=== PATIENT | male | born 1950 | race Caucasian/White ===

== ENCOUNTER 2018-03-25 06:40 | Day surgery (SDC) | payer OTHER, MEDICARE, MEDICAID ==
[~2018-03-25] VITALS: Ht 165.1 cm; Wt 74.0 kg
[~2018-03-25 06:40] MED LIST: ACET-784 PO; ATOR10TA84 PO; DOCU250C91 PO; DUTA.5 PO; FERR-89 PO; GUAIF10 PO; LEVO75 PO; LOPE2 PO; LORA10TA7 PO; MELO-107 PO; MULT1TAB70 PO; PHEN118S38 PO
[2018-03-25] MEDS ORDERED: RINGERS SOLUTION,LACTATED 1,000 ML IV ONE ×3 (06:53→07:00)
[2018-03-25] MEDS ORDERED: AMPICILLIN SODIUM 1 GM/VIAL ONE ×2 (06:59→07:36)
[2018-03-25] MEDS ORDERED: SODIUM CHLORIDE 0.9% 100 ML ONE (07:00)
[2018-03-25] MEDS ORDERED: MEPERIDINE-PF 25 MG/ML VIAL IVP PRN (09:45)
[2018-03-25] MEDS ORDERED: FentaNYL CITRATE-PF 100 MCG/2 ML VIAL IVP PRN (09:45)
[2018-03-25] MEDS ORDERED: HYDROmorphone 2 MG/ML SYRINGE IVP PRN (09:45)
[2018-03-25] MEDS ORDERED: SUCCINYLCHOLINE CHLORIDE 20 MG/ML 10 ML VIAL IVP ONE (12:00)
[2018-03-25] MEDS ORDERED: ONDANSETRON HCL 4 MG/2 ML VIAL IVP ONE (12:00)
[2018-03-25] MEDS ORDERED: FentaNYL CITRATE-PF 100 MCG/2 ML VIAL IVP ONE (12:00)
[2018-03-25] MEDS ORDERED: DEXAMETHASONE SOD PHOS 4 MG/ML VIAL IVP ONE (12:00)
[2018-03-25] MEDS ORDERED: PROPOFOL 1% 20 ML VIAL IVP ONE (12:00)
[2018-03-25] MEDS ORDERED: KETAMINE HCL 50 MG/ML 10 ML VIAL IVP ONE (12:00)
[2018-03-25] MEDS ORDERED: LIDOCAINE/PF 2% 5 ML VIAL INJ ONE (12:00)
[2018-03-25] MEDS ORDERED: OXYGEN THERAPY IH SCH (20:00)
== END 2018-03-25 11:20 | disposition home or self-care (01) ==
LOC: SRCNTR 06:40 → SDS 11:20 → EDSTATUS 12:00
PROVIDERS: ATTEND Dentist General Practice
DX: K05.30 Chronic periodontitis, unspecified (principal); K00.7 Teething syndrome; E03.9 Hypothyroidism, unspecified; M19.90 Unspecified osteoarthritis, unspecified site; K59.00 Constipation, unspecified; N40.0 Benign prostatic hyperplasia without lower urinary tract symptoms; E78.5 Hyperlipidemia, unspecified; I10 Essential (primary) hypertension; F78 Other intellectual disabilities; Z79.891 Long term (current) use of opiate analgesic; Z98.890 Other specified postprocedural states; Z79.899 Other long term (current) drug therapy
CPT/HCPCS: 41899; J0290; J0330; J1100; J2405; J2704; J3010; J3490 ×2; J7050; J7120

== ENCOUNTER 2023-01-01 06:24 | Day surgery (SDC) | payer OTHER, MEDICARE, MEDICAID ==
[~2023-01-01 06:24] MED LIST changes: +ATOR10TA PO; -ATOR10TA84 PO; +DOCU-412 PO; -DOCU250C91 PO; -DUTA.5 PO; +DUTA0.5C38 PO; -FERR-89 PO; +FERR325T27 PO; +LOPE-232 PO; -LOPE2 PO; -MELO-107 PO; +MELO-381 PO; +MULT-660 PO; -MULT1TAB70 PO
[2023-01-01] MEDS ORDERED: FINA-27 PO (07:27)
[2023-01-01] MEDS ORDERED: XALA2.5OS OU (07:28)
[2023-01-01] MEDS ORDERED: LISI-892 PO (07:29)
[2023-01-01] MEDS ORDERED: ICOS1CAP PO (07:32)
[2023-01-01] MEDS ORDERED: RINGERS SOLUTION,LACTATED 1,000 ML IV ONE ×2 (07:33→13:30)
[2023-01-01 07:50] LABS: BASOPHILS % (AUTO) 0.2 % (0.0-2.0); EOSINOPHILS % (AUTO) 3.5 % (1.0-6.0); HEMATOCRIT 40.2 % (41-53); HEMOGLOBIN 13.9 g/dL (13.5-17.5); LYMPHOCYTES # (AUTO) 0.8 K/uL (1.0-4.8); LYMPHOCYTES % (AUTO) 13.3 % (22.0-44.0); MEAN CORPUSCULAR HEMOGLOBIN 32.3 pg (26.0-34.0); MEAN CORPUSCULAR HGB CONC 34.6 G/dL (31.0-37.0); MEAN CORPUSCULAR VOLUME 93 fL (80-100); MONOCYTES # (AUTO) 0.3 K/uL (0.1-1.0); MONOCYTES % (AUTO) 4.5 % (2.0-9.0); NEUTROPHILS # (AUTO) 4.9 K/uL (1.8-7.7); NEUTROPHILS % (AUTO) 78.5 % (40.0-70.0); PLATELET COUNT (AUTO) 248 K/uL (150-450); RED BLOOD CELL COUNT(AUTO) 4.32 MIL/uL (4.50-5.90); RED CELL DISTRIBUTION WIDTH 13.1 % (11.5-14.5); WHITE BLOOD COUNT (AUTO) 6.3 K/uL (4.5-11.0)
[2023-01-01 07:58] LABS: ANION GAP 7 mmol/L (8-16); CALCIUM, TOTAL 9.7 mg/dL (8.8-10.5); CARBON DIOXIDE 30 mmol/L (22-29); CHLORIDE 104 mmol/L (98-107); CREATININE 0.72 mg/dL (0.60-1.30); GLOMERULAR FILTR. RATE CALC > 60 mL/min (>60); GLUCOSE,RANDOM 107 mg/dL (70-110); POTASSIUM 3.8 mmol/L (3.5-5.1); SODIUM SERUM 141 mmol/L (136-145); UREA NITROGEN, BLOOD 23 mg/dL (7-18)
[2023-01-01 08:05] LABS: INR 1.1 (0.9-1.1)
[2023-01-01 08:13] LABS: ALANINE AMINOTRANSFERASE 22 U/L (12-78); ALBUMIN 4.6 g/dL (3.4-5.0); ALKALINE PHOSPHATASE 86 U/L (46-116); ASPARTATE AMINOTRANSFERASE 25 U/L (15-37); BILIRUBIN,TOTAL 0.4 mg/dL (0.1-1.0); TOTAL PROTEIN, SERUM 8.6 g/dL (6.4-8.2)
[2023-01-01] MEDS ORDERED: AMPICILLIN SODIUM 2 GM/NS 100 ML IV ONE (08:27)
[2023-01-01 09:18] LABS: CHOL/HDL RATIO 2.5 (4.2-7.3); CHOLESTEROL 113 mg/dL (131-200); HDL CHOLESTEROL 45 mg/dL (40-60); LDL CHOL (CALC.) 57 mg/dL (0-130); TRIGLYCERIDES 54 mg/dL (15-150)
[2023-01-01 09:19] LABS: THYROID STIMULATING HORMONE 0.81 uIU/mL (0.36-3.74)
[2023-01-01 09:44] LABS: FREE T4 (FREE THYROXINE) 1.53 ng/dL (0.76-1.46)
== END 2023-01-01 12:20 | disposition home or self-care (01) ==
LOC: SURGERY 06:24
PROVIDERS: ATTEND Dentist General Practice
DX: K05.30 Chronic periodontitis, unspecified (principal); E03.9 Hypothyroidism, unspecified; M19.90 Unspecified osteoarthritis, unspecified site; K59.00 Constipation, unspecified; E78.5 Hyperlipidemia, unspecified; Z79.899 Other long term (current) drug therapy; Z79.01 Long term (current) use of anticoagulants; Z98.890 Other specified postprocedural states
CPT/HCPCS: 41899; 71045; 80061; 80053; 84153; 84439; 84443; 85025; 85610; 85730; 36415; 93005; J0290; J7120